=== PATIENT | female | born 1980 | race Caucasian/White ===

== ENCOUNTER 2018-04-06 06:22 | Inpatient (IN) ==
[2018-04-06] MEDS ORDERED: D5 1/2 NS 1000 ML 1,000 ML IV ONE (06:34)
[2018-04-06] MEDS ORDERED: ANCEF 1 GRAM IV PREMIX* 1 G/50 ML BAG IV ONE (06:34)
[2018-04-06 06:57] VITALS: BMI 38.7
[2018-04-06] MEDS ORDERED: ANCEF VIAL 1 GRAM IVP ONE (07:00)
[2018-04-06] MEDS ORDERED: D5 1/2 NS 1000 ML 1,000 ML IV SCH (07:00)
[2018-04-06] MEDS ORDERED: FENTANYL INJ 250 mcg ONE (07:19)
[2018-04-06] MEDS ORDERED: DILAUDID INJ ONE ×2 (08:10→10:10)
[2018-04-06] MEDS ORDERED: LR 1000 ML IV 1,000 ML IV ONE (08:46)
[2018-04-06] MEDS ORDERED: METHYLENE BLUE 1% INJ ONE (08:58)
[2018-04-06] MEDS ORDERED: REGLAN INJ 10 MG VIAL IVP PRN (09:53)
[2018-04-06] MEDS ORDERED: ZOFRAN INJ 4 MG VIAL IVP PRN ×2 (09:53→10:50)
[2018-04-06] MEDS ORDERED: DILAUDID INJ IVP PRN (09:53)
[2018-04-06] MEDS ORDERED: BENADRYL INJ 50 MG VIAL IVP PRN ×2 (09:53→10:50)
[2018-04-06] MEDS ORDERED: PHENERGAN INJ 25 MG IVP PRN (09:53)
[2018-04-06] MEDS ORDERED: ZOFRAN INJ 4 MG VIAL ONE ×2 (10:14→13:03)
[2018-04-06] MEDS ORDERED: NEOSTIGMINE INJ ONE (10:39)
[2018-04-06] MEDS ORDERED: TORADOL 30 MG VIAL IVP PRN (10:50)
[2018-04-06] MEDS ORDERED: NS IRRIGATION 1000 ML ONE (10:53)
[2018-04-06] MEDS ORDERED: NS IRRIGATION 500 ML IR ONE (10:53)
[2018-04-06] MEDS: MORPHINE SULFATE PCA 30 MG IVP PRN ×2 (11:54→20:06)
[2018-04-06] MEDS ORDERED: VERSED ONE (13:03)
[2018-04-06] MEDS ORDERED: QUELICIN (OR ANECTINE) ONE (13:03)
[2018-04-06] MEDS ORDERED: ROBINUL ONE (13:03)
[2018-04-06] MEDS ORDERED: NORCURON INJ 10 MG VIAL ONE (13:03)
[2018-04-06] MEDS ORDERED: DIPRIVAN VIAL ONE (13:03)
[2018-04-06] MEDS ORDERED: SUPRANE IN ONE (13:03)
[2018-04-06] MEDS: D5 1/2 NS 1000 ML 1,000 ML IV SCH ×3 (14:18→20:10)
[2018-04-06] MEDS: PHENERGAN INJ 25 MG IVP PRN (15:15)
[2018-04-07] MEDS: PHENERGAN INJ 25 MG IVP PRN ×2 (03:44→09:15)
[2018-04-07 05:19] LABS: BLOOD UREA NITROGEN 7 mg/dL (7-18); CALCIUM 7.7 mg/dL (8.5-10.1); CHLORIDE 103 mmol/L (98-107); COR NA(FOR HYPERGLY) 135 mmol/L (136-145); CREATININE 0.75 mg/dL (0.55-1.02); SODIUM 134 mmol/L (136-145); eGFR NON BLACK RACES > 60 (>60)
[2018-04-07 05:26] LABS: BASOPHILS % (AUTO) 0.4 % (0.2-1.0); HEMATOCRIT 30.3 % (36.0-47.0); HEMOGLOBIN 10.1 g/dL (12.0-16.0); LYMPHOCYTES # (AUTO) 0.6 X10^3/uL (1.3-2.9); LYMPHOCYTES % (AUTO) 7.7 % (21.0-51.0); MEAN CORPUSCULAR HEMOGLOBIN 25.6 pg (27.0-34.0); MEAN CORPUSCULAR HGB CONC 33.2 g/dL (33.0-35.0); MEAN CORPUSCULAR VOLUME 77.3 fL (80.0-100.0); MONOCYTES # (AUTO) 0.5 x10^3/uL (0.3-0.8); NEUTROPHILS % (AUTO) 85.9 % (42.0-75.0); PLATELET COUNT 260 X10^3/uL (150.0-450.0); RED BLOOD COUNT 3.93 X10^6/uL (3.5-5.4); RED CELL DISTRIBUTION WIDTH 15.8 % (11.6-16.5); WHITE BLOOD COUNT 8.1 X10^3/uL (3.6-10.0)
[2018-04-07 05:50] LABS: PLATELET MORPHOLOGY COMMENT NORMAL (NORMAL)
[2018-04-07] MEDS ORDERED: MOTRIN TAB 800 MG PO PRN (07:13)
[2018-04-07] MEDS ORDERED: PERCOCET TAB 5/325 MG PO PRN (07:13)
[2018-04-07] MEDS ORDERED: MYLICON TAB 80 MG CHEW PO PRN (07:15)
[2018-04-07] MEDS: D5 1/2 NS 1000 ML 1,000 ML IV SCH ×2 (07:37→11:04)
[2018-04-07] MEDS ORDERED: TYLENOL 325 MG TAB PO PRN ×2 (08:03→14:01)
[2018-04-07] MEDS ORDERED: COLACE CAP 100 MG PO SCH (09:00)
[2018-04-07] MEDS ORDERED: PHENERGAN TAB 25 MG PO PRN ×2 (10:58→14:01)
[2018-04-07] MEDS ORDERED: ANCEF VIAL 1 GRAM IVP SCH (11:00)
[2018-04-07] MEDS: PERCOCET TAB 5/325 MG PO PRN ×3 (13:29→21:33)
[2018-04-07] MEDS: BACTROBAN CREAM TOP SCH ×2 (13:29→21:34)
[2018-04-07] MEDS ORDERED: BENADRYL INJ 50 MG VIAL IVP PRN (14:00)
[2018-04-07] MEDS: COLACE CAP 100 MG PO SCH (21:34)
[2018-04-08] MEDS: PERCOCET TAB 5/325 MG PO PRN ×3 (01:36→10:23)
[2018-04-08] MEDS: BACTROBAN CREAM TOP SCH (05:35)
[2018-04-08] MEDS: COLACE CAP 100 MG PO SCH (09:08)
[2018-04-08] MEDS: D5 1/2 NS 1000 ML 1,000 ML IV SCH ×2 (11:53→11:54)
[2018-04-08] MEDS ORDERED: LEVAQUIN PREMIX IV 500 MG 500 MG/100 ML BAG IV ONE (12:23)
[2018-04-08 12:41] VITALS: BP 111/64
== END 2018-04-08 12:24 | disposition home or self-care (01) | DRG 743 ==
LOC: MED/SURG 06:22
PROVIDERS: ADMIT Specialist; ATTEND Specialist
CPT/HCPCS: 36415; 80048; 85025; 87040; 94760; A4216; A4222; Q0169; J0330; J0690; J1170; J2250; J2271; J2405; J2550; J2704; J2710; J3010; J3490; J7120; Q9968; S5010